=== PATIENT | male | born 1990 | race American Indian/Alaskan Native ===

== ENCOUNTER 2018-12-23 21:32 | Emergency (ER) | payer SELFPAY ==
[2018-12-23 21:44] VITALS: BP 124/78
--- NOTE | 2018-12-23 22:12 | Event Note ---
ED Screening Note Date of service: 12/23/18 Time: 22:10 ED Screening Note: 28 y/o male cut injured right index finger. This initial assessment/diagnostic orders/clinical plan/treatment(s) is/are subject to change based on patients health status, clinical progression and re- assessment by fellow clinical providers in the ED. Further treatment and workup at subsequent clinical providers discretion. Patient/guardian urged not to elope from the ED as their condition may be serious if not clinically assessed and managed. Initial orders include:
--- NOTE | 2018-12-23 23:10 | XRay Report ---
PROCEDURE: XR FINGER(S) 2+V RT TECHNIQUE: Right INDEX finger radiographs, including AP, lateral, and oblique views. HISTORY: crush finger in door. pain COMPARISONS: None . FINDINGS: Fracture (s) and/or Dislocation(s): There is an impacted fracture of the midshaft of middle phalanx second digit right hand. The remaining osseous structures are intact. . Alignment: Normal . Joint space(s): Normal . Soft tissues: Normal . Bone mineralization: Normal . Foreign bodies: None . IMPRESSION: There is an impacted fracture involving the midshaft of the middle phalanx second digit right hand . This document is electronically signed by Magui Joshi DO., December 23 2018 11:08:54 PM ET
[2018-12-23] MEDS ORDERED: IBUPROFEN PO ONE (23:38)
[2018-12-23] MEDS ORDERED: BOOSTRIX IM ONE (23:59)
--- NOTE | 2018-12-24 00:02 | Emergency Department Report ---
Upper Extremity - HPI Chief Complaint: Extremity Injury, Upper Stated Complaint: RT INDEX FUNGER Time Seen by Provider: 12/23/18 23:13 Other History: pt is a 28 yo male who presents to the ED with c/o a right index finger injury that occurred around 8 PM. The patient states he was at work when someone accidentally shut his finger inside of a fisher door. He states he is able to move the digit up and down but is unable to move the joint secondary to pain. he states initially there was bleeding were it was jammed but has since resolved on its own. he denies any numbness. He denies any prior injury. He is right hand dominant. He denies any PMHx or allergies to meds. ED Review of Systems ROS: Stated complaint: RT INDEX FUNGER Other details as noted in HPI Comment: All other systems reviewed and negative ED Past Medical Hx - Past Medical History Previous Medical History?: No - Surgical History Past Surgical History?: No - Social History Smoking Status: Current Every Day Smoker Substance Use Type: Alcohol - Medications Home Medications: Home Medications Medication Instructions Recorded Confirmed Last Taken Type Acetaminophen/Codeine [Tylenol 1 tab PO Q6H PRN #10 tab 12/24/18 Unknown Rx /Codeine # 3 tab] Ibuprofen [Motrin 800 MG tab] 800 mg PO Q8HR PRN #14 tablet 12/24/18 Unknown Rx cephALEXin [Keflex] 500 mg PO QID 5 Days #20 capsule 12/24/18 Unknown Rx Upper Extremity Exam - Exam General: Vital signs noted. No distress. Alert and acting appropriately. Head and Torso: No HEENT Abnormality Shoulder Exam: Yes Normal Range of Motion in Shoulder, No Shoulder Tenderness, No Clavicle Tenderness, No Shoulder Deformity, No AC Joint Tenderness Arm Exam: No Arm/Humerus Tenderness, No Arm Deformity Elbow: Yes Normal Range of Motion in Elbow, No Elbow Tenderness, No Elbow Deformity Forearm: No Forearm Tenderness, No Forearm Deformity Wrist: Yes Normal ROM in Wrist, No Wrist Tenderness, No Wrist Deformity, No Snu ffbox Tenderness, No Pain with Axial Thumb Compression Hand: Yes Digit Tenderness (TTP over the right index finger PIP joint, small amount of edema present to the right index finger), Yes Digit(s) Deformity (slight deformity present to the PIP joint, appears slightly shortened), No Hand Tenderness, No Hand Deformity, No Normal ROM in Digit(s) (decreased ROM of the right index finger PIP secondary to pain, pt has some flexion and extension, FROM of the right index MCP, decreased ROM of the right index finger DIP secondary to pain) CMS Exam: Yes Broken Skin (small very superificial laceration to the palmar surface of the right index finger in a v-shape appearance, very small superficial abrasion to the dorsal surface of the right index finger), Yes Normal Distal Pulses, Yes Normal Capillary Refill, Yes Normal Distal Sensation ED Course Vital Signs 12/23/18 21:39 Temperature 98.6 F Pulse Rate 82 Respiratory 16 Rate Blood Pressure 124/78 O2 Sat by Pulse 99 Oximetry ED Medical Decision Making - Radiology Data Radiology results: report reviewed PROCEDURE: XR FINGER(S) 2+V RT TECHNIQUE: Right INDEX finger radiographs, including AP, lateral, and oblique views. HISTORY: crush finger in door. pain COMPARISONS: None . FINDINGS: Fracture (s) and/or Dislocation(s): There is an impacted fracture of the midshaft of middle phalanx second digit right hand. The remaining osseous structures are intact. . Alignment: Normal . Joint space(s): Normal . Soft tissues: Normal . Bone mineralization: Normal . Foreign bodies: None . IMPRESSION: There is an impacted fracture involving the midshaft of the middle phalanx second digit right hand . This document is electronically signed by Lauryn Joshi DO., December 23 2018 11:08:54 PM ET Transcribed By: [facility] Dictated By: LAURYN JOSHI MD Electronically Authenticated By: LAURYN JOSHI MD Signed Date/Time: 12/23/18 6813 - Medical Decision Making pt is a 28 yo male who presents to the ED with c/o a right index finger injury that occurred around 8 PM. The patient states he was at work when someone accidentally shut his finger inside of a fisher door. He states he is able to move the digit up and down but is unable to move the joint secondary to pain. he states initially there was bleeding were it was jammed but has since resolved on its own. he denies any numbness. He denies any prior injury. He is right hand dominant. He denies any PMHx or allergies to meds. on exam: TTP over the right index finger PIP joint, small amount of edema present to the right index finger, pt has very superificial laceration to the palmar surface of the right index finger does not need repair, also very small abrasion to the dorsal surface of the right index finger. areas were cleaned with betadine and irrigated. XR right hand shows There is an impacted fracture involving the midshaft of the middle phalanx second digit right hand. pt placed in metal finger splint. will have pt follow up with Dr. Cuellar, orthopedic in the next 2-3 days. pt placed on abx. pt given tetanus immunization. pt given pain medication and anti-inflammatory. advised to only take pain medication for severe pain and do not drive or operate heavy machinery while taking medication. may ice and rest the finger. keep area clean and dry. may wash with soap and water and immediately dry. no hot tub or pool. return to the emergency room for any new or worsening symptoms. - Differential Diagnosis fx, dislocation, sprain, strain Critical care attestation.: If time is entered above; I have spent that time in minutes in the direct care of this critically ill patient, excluding procedure time. ED Disposition Clinical Impression: Fracture of phalanx of right index finger Qualifiers: Encounter type: initial encounter Fracture type: closed Phalanx: middle Fract ure alignment: displaced Qualified Code(s): S62.620A - Displaced fracture of middle phalanx of right index finger, initial encounter for closed fracture Disposition: DC-01 TO HOME OR SELFCARE Is pt being admited?: No Does the pt Need Aspirin: No Condition: Stable Instructions: Finger Fracture (ED) Additional Instructions: please follow up with Dr. Cuellar, orthopedic in the next 2-3 days. please take medication as prescribed. Only take pain medication for severe pain and do not drive or operate heavy machinery while taking medication. may ice and rest the finger. keep area clean and dry. may wash with soap and water and immediately dry. no hot tub or pool. return to the emergency room for any new or worsening symptoms. Prescriptions: cephALEXin [Keflex] 500 mg PO QID 5 Days #20 capsule Ibuprofen [Motrin 800 MG tab] 800 mg PO Q8HR PRN #14 tablet PRN Reason: Pain, Moderate (4-6) Acetaminophen/Codeine [Tylenol /Codeine # 3 tab] 1 tab PO Q6H PRN #10 tab PRN Reason: Pain , Severe (7-10) Referrals: DURAN SALDANA MD [Primary Care Provider] - 2-3 Days CYRUS CUELLAR MD [Staff Physician] - 2-3 Days Forms: Accompanied Note, Work/School Release Form(ED) Time of Disposition: 00:23 Print Language: URDU
== END 2018-12-24 00:40 | disposition home or self-care (01) ==
LOC: ED 21:32
DX: S62.620A Displaced fracture of middle phalanx of right index finger, initial encounter for closed fracture (principal); F17.200 Nicotine dependence, unspecified, uncomplicated; Z79.1 Long term (current) use of non-steroidal anti-inflammatories (NSAID); W23.0XXA Caught, crushed, jammed, or pinched between moving objects, initial encounter; Y93.89 Activity, other specified; Y92.89 Other specified places as the place of occurrence of the external cause; Y99.8 Other external cause status
CPT/HCPCS: 90471; 90715

== ENCOUNTER 2020-07-20 13:17 | Emergency (ER) | payer SELFPAY ==
[2020-07-20 13:35] VITALS: BP 132/93
[2020-07-20] MEDS ORDERED: oxyCODONE /ACETAMINOPHEN 5-325MG TAB PO ONE (14:01)
--- NOTE | 2020-07-20 14:26 | Emergency Department Report ---
ED General Adult HPI - General Chief complaint: Dental/Oral Stated complaint: MOUTH INFECTION Time Seen by Provider: 07/20/20 13:39 Source: patient Mode of arrival: Ambulatory Limitations: No Limitations - History of Present Illness Initial comments: 29-year-old -[place] male presents with complaints of left lower dental pain and facial swelling. Patient states that his tooth has been hurting for the past 2 months, however the facial swelling began 3 days ago with worsening pain. He denies any fever/chills/sweats, difficulty opening his jaw, or dysphagia. Patient rates his pain as a 10/10 in severity. He denies currently following with dental specialist. Pain worsens with chewing and touch palpation. Severity scale (0 -10): 7 - Related Data Previous Rx's Medication Instructions Recorded Last Taken Type cephALEXin [Keflex] 500 mg PO QID 5 Days #20 capsule 12/24/18 Unknown Rx Acetaminophen/Codeine [Tylenol 1 tab PO Q8H PRN #10 tab 07/20/20 Unknown Rx /Codeine # 3 tab] Clindamycin [Clindamycin CAP] 300 mg PO Q6H #40 1000units 07/20/20 Unknown Rx Ibuprofen [Motrin 800 MG tab] 800 mg PO Q8HR PRN #21 tablet 07/20/20 Unknown Rx Allergies Allergy/AdvReac Type Severity Reaction Status Date / Time No Known Allergies Allergy Verified 12/23/18 21:45 ED Review of Systems ROS: Stated complaint: MOUTH INFECTION Other details as noted in HPI Constitutional: denies: diaphoresis, fever, malaise ENT: dental pain. denies: throat pain Respiratory: denies: cough, shortness of breath Cardiovascular: denies: chest pain Neurological: denies: headache Hematological/Lymphatic: denies: swollen glands ED Past Medical Hx - Past Medical History Previous Medical History?: No - Surgical History Past Surgical History?: No - Social History Smoking Status: Current Every Day Smoker - Medications Home Medications: Home Medications Medication Instructions Recorded Confirmed Last Taken Type cephALEXin [Keflex] 500 mg PO QID 5 Days #20 capsule 12/24/18 Unknown Rx Acetaminophen/Codeine [Tylenol 1 tab PO Q8H PRN #10 tab 07/20/20 Unknown Rx /Codeine # 3 tab] Clindamycin [Clindamycin CAP] 300 mg PO Q6H #40 1000units 07/20/20 Unknown Rx Ibuprofen [Motrin 800 MG tab] 800 mg PO Q8HR PRN #21 tablet 07/20/20 Unknown Rx ED Physical Exam - General Limitations: No Limitations - Head Head exam: Present: atraumatic, normocephalic - Eye Eye exam: Present: normal appearance. Absent: scleral icterus - Expanded ENT Exam Expanded 1 - Dental Tenderness (Dental abscess noted with overlying facial swelling no cellulitic changes noted;) - Neck Neck exam: Present: normal inspection, full ROM. Absent: lymphadenopathy - Respiratory Respiratory exam: Absent: respiratory distress - Cardiovascular Cardiovascular Exam: Present: regular rate - Extremities Exam Extremities exam: Present: full ROM - Back Exam Back exam: Present: normal inspection - Neurological Exam Neurological exam: Present: alert, oriented X3 - Psychiatric Psychiatric exam: Present: normal affect, normal mood - Skin Skin exam: Present: warm, dry, intact, normal color. Absent: rash ED Course Vital Signs 07/20/20 13:32 Temperature 98.5 F Pulse Rate 78 Respiratory 18 Rate Blood Pressure 132/93 O2 Sat by Pulse 98 Oximetry ED Medical Decision Making - Medical Decision Making 29-year-old -[place] male presents with complaints of left lower dental pain and facial swelling. Patient states that his tooth has been hurting for the past 2 months, however the facial swelling began 3 days ago with worsening pain. He denies any fever/chills/sweats, difficulty opening his jaw, or dysphagia. Patient rates his pain as a 10/10 in severity. He denies currently following with dental specialist. Pain worsens with chewing and touch palpation. Needle aspiration of dental abscess performed with moderate purulent drainage obtained. Patient to discharge home on clindamycin and pain medication. Patient provided with dental specialist list and informed to follow-up within 1 to 2 days. Discussed signs and symptoms that should prompt immediate return to emergency department in detail with patient verbalized understanding. His vitals are normal, he is well-appearing, he is stable for discharge home. Critical care attestation.: If time is entered above; I have spent that time in minutes in the direct care of this critically ill patient, excluding procedure time. ED Disposition Clinical Impression: Dental abscess Disposition: DC-01 TO HOME OR SELFCARE Is pt being admited?: No Condition: Stable Instructions: Dental Abscess Additional Instructions: please follow-up with a dental specialist from the list provided within 1 to 2 days Prescriptions: Clindamycin [Clindamycin CAP] 300 mg PO Q6H #40 1000units Ibuprofen [Motrin 800 MG tab] 800 mg PO Q8HR PRN #21 tablet PRN Reason: Pain, Moderate (4-6) Acetaminophen/Codeine [Tylenol /Codeine # 3 tab] 1 tab PO Q8H PRN #10 tab PRN Reason: Pain , Severe (7-10) Referrals: PRIMARY CARE, [Primary Care Provider] - 3-5 Days
== END 2020-07-20 15:08 | disposition home or self-care (01) ==
LOC: ED 13:17
DX: K08.89 Other specified disorders of teeth and supporting structures (principal); F17.200 Nicotine dependence, unspecified, uncomplicated; Z79.899 Other long term (current) drug therapy
CPT/HCPCS: 99282

== ENCOUNTER 2021-10-17 01:28 | Emergency (ER) | payer SELFPAY ==
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
== END 2021-10-17 01:59 | disposition home or self-care (01) ==
LOC: ED 01:28
DX: F10.10 Alcohol abuse, uncomplicated (principal)
CPT/HCPCS: 99283